=== PATIENT | male | born 1965 ===

== ENCOUNTER 2016-11-19 22:46 | Emergency (ER) | payer OTHER ==
--- NOTE | 2016-11-19 22:50 | PDOC ---
History of Present Illness - General Chief Complaint: Chest Pain Stated Complaint: CHEST PAIN Time Seen by Provider: 11/19/16 22:50 History Source: Patient Exam Limitations: No Limitations - History of Present Illness Initial Comments: 11/19/16 23:00 This is a 51-year-old healthy male who comes in complaining of the left-sided chest pain after eating extra hot and spicy red sauce. Patient said that the pain feels like very bad indigestion. Patient denies any associated shortness of breath, nausea, diaphoresis or radiation. Patient said he took an antacid with gradual relief of the chest pain. By the time patient got to the emergency room the chest pain had resolved. Patient denies any risk factors. Patient has no history of hypertension, high cholesterol, diabetes. Patient has no family history of coronary artery disease. Patient does not smoke and denies any use of illegal drugs. PAST MEDICAL HISTORY: no significant history PAST SURGICAL HISTORY: no significant history FAMILY HISTORY: no pertinant history SOCIAL HISTORY: Pt lives with family and is employed. MEDICATIONS: reviewed ALLERGIES: As per nursing notes Review of Systems General: No fevers or chills, no weakness, no weight loss HEENT: No change in vision. No sore throat,. No ear pain CardioVascular: + chest pain, no shortness of breath Respiratory:No cough, or wheezing. Gastrointestinal: no nausea, vomitting, diarrhea or constipation, No rectal bleeding Genitourinary: No dysuria, hematuria, or frequency Musculoskeletal: No joint or muscle pain or swelling Neurologic: No headache, vertigo, dizziness or loss of consciousness Psychiatric: nor depression Skin: No rashes or easy bruising Endocrine: no increased thirst or abnormal weight change Allergic: no skin or latex allergy All other systems reviewed and normal Exam: General: Well-nourished well-developed individual, no acute distress HEENT: Throat: Normal, tonsils normal, no erythema or exudate Neck: Supple, no meningeal signs, no lymphadenopathy Eyes::Pupils equal reactive and round, extraocular motion intact Chest: Nontender to palpation Cardiac: S1-S2 normal, regular rate and rhythm, no murmurs rubs or gallops Respiratory: Lungs clear to auscultation bilateral Abdomen: Soft, nondistended, normal bowel sounds, nontender to palpation diffusely Extremities: Warm, dry, no cyanosis, clubbing, or edema Skin: No rashes Neuro: Alert and oriented x3, nonfocal exam, grossly intact, normal gait Psych: Normal mood and affect 11/19/16 23:01 EKG shows normal sinus rhythm at a rate of 76, normal intervals no acute ST-T wave changes normal EKG 11/19/16 23:43 Assessment and plan: This is a 51-year-old male who comes in complaining of chest pain after eating hot sauce. Patient chest pain was relieved with some antacids. Patient has no cardiac risk factors. His heart score is 1. He is EKG is now normal and his troponin is negative. Patient discharged and will follow-up with his primary care doctor Past History - Past Medical History Allergies/Adverse Reactions: Allergies Allergy/AdvReac Type Severity Reaction Status Date / Time No Known Allergies Allergy Unverified 11/19/16 22:57 Home Medications: Ambulatory Orders NK [No Known Home Medication] 11/19/16 Heart Score/ECG Review - History History: Slightly suspicious - Electrocardiogram EKG: Normal - Age Age: 45-65 - Risk Factors Based on the list above the patient has:: No risk factors known - Troponin Troponin: </= normal limit - Score Heart Score - Total: 1 *DC/Admit/Observation/Transfer Diagnosis at time of Disposition: Atypical chest pain - Discharge Dispostion Disposition: HOME Condition at time of disposition: Stable Admit: No - Patient Instructions Printed Discharge Instructions: DI for Atypical Chest Pain Additional Instructions: Return to the emergency department immediately with ANY new, persistent or worsening symptoms. Continue any medications as previously prescribed by your physician. You should follow up with your primary doctor as soon as possible regarding today's emergency department visit. . Please make sure your doctor reviews the results of your emergency evaluation. Thank you for coming to the Emergency Department today for your care. It was a pleasure to see you today. Please note that your evaluation is INCOMPLETE until you follow-up with your doctor.
[2016-11-19 23:05] VITALS: BP 142/93; PULSE 66; TEMP 98; BMI 28.5
[2016-11-19 23:24] LABS: CPK(DFH) 191 IU/L (38-174)
[2016-11-19 23:39] LABS: TROPONIN I (DFP) < 0.03 ng/ml (0.03-0.50)
[2016-11-19 23:53] LABS: CK MB 3.2 ng/ml (0.3-4.0)
--- NOTE | 2016-11-24 09:25 | EKG ---
Test Reason : Blood Pressure : / mmHG Vent. Rate : 070 BPM Atrial Rate : 070 BPM P-R Int : 162 ms QRS Dur : 092 ms QT Int : 418 ms P-R-T Axes : 042 055 032 degrees QTc Int : 451 ms NORMAL SINUS RHYTHM NO PREVIOUS ECGS AVAILABLE Confirmed by MD SASHA, IRAIDA ([id number]) on 11/24/2016 9:25:21 AM Referred By: DR DE LA CRUZ Confirmed By:IRAIDA BAEZ MD
== END 2016-11-19 23:49 | disposition home or self-care (01) ==
LOC: FER 22:46
DX: R07.89 Other chest pain (principal)
CPT/HCPCS: 36415; 82550; 82553; 84484; 93005; 93010; 99282-25